=== PATIENT | female | born 1980 | race African-American/Black ===

== ENCOUNTER 2016-06-01 14:31 | Emergency (ER) | payer OTHER ==
[~2016-06-01] VITALS: Ht 170.2 cm; Wt 93.9 kg
--- NOTE | ~2016-06-01 | EKG ---
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
[~2016-06-01 14:31] MED LIST: APAP500 PO; DERMOPLAST SPRA56 ML; HYDROCODON-ACE1 EAC7 PO; IBUPROFEN 400400 M2 PO; IBUPROFEN 600600 M1 PO; IBUPROFEN 800800 M1 PO; IBUPROFEN 800800 MG PO; KEFLEX500 MG PO; LASIX 40 MG TAB40 M2 PO; LISINOPRIL40 MG PO; NOHOMEMEDICATIONS; NORCO 5-325 TA1 EACH PO; PENICILLIN V P500 MG PO; PENICILLIN VK500 M1 PO; POTASSIUM CHLO20 ME1 PO; PRENATAL; PRENATAL PO; TOBREX5 ML OPHTHALMIC; TUCKS MEDICATE1 EAC1; ZOFRAN ODT4 MG PO; ZPAK PO
[2016-06-01] MEDS ORDERED: ZANTAC 150MG T150 MG PO (15:24)
[2016-06-01 16:21] LABS: ABSOLUTE NEUTROPHILS 3.1 thou/uL (1.4-8.2); BASOPHILS 0.2 % (0.0-2.0); EOSINOPHILS 2.3 % (0.0-3.0); HEMATOCRIT 40.7 % (37.0-47.0); HEMOGLOBIN 13.6 gm/dL (12.0-15.0); LYMPHOCYTES 21.9 % (24.0-44.0); MCH 28.6 pg (26.0-34.0); MCHC 33.4 % (28.0-37.0); MCV 85.8 fL (80.0-100.0); MONOCYTES 9.1 % (1.0-8.0); PLATELET COUNT 198 thou/uL (150-400); POLYS 66.5 % (36.0-66.0); RBC 4.75 mil/uL (4.20-5.00); RDW 14.7 % (10.5-14.5); WBC 4.6 thou/uL (4.0-11.0)
[2016-06-01 16:22] LABS: MANUAL DIFF NO
[2016-06-01 16:24] LABS: CALCIUM 8.1 mg/dL (8.5-10.1); CREATININE 0.7 mg/dL (0.6-1.3); POTASSIUM 3.6 mmol/L (3.5-5.1)
== END 2016-06-01 16:45 | disposition home or self-care (01) ==
LOC: ER 14:31
PROVIDERS: Physician Assistant
DX: D17.9 Benign lipomatous neoplasm, unspecified (principal); R42 Dizziness and giddiness; Z87.891 Personal history of nicotine dependence

== ENCOUNTER 2016-12-08 11:27 | Emergency (ER) | payer OTHER ==
[~2016-12-08] VITALS: Ht 170.2 cm; Wt 92.1 kg
[~2016-12-08 11:27] MED LIST changes: +ZANTAC 150MG T150 MG PO
[2016-12-08] MEDS ORDERED: VALIUM5 MG PO (11:40)
[2016-12-08] MEDS ORDERED: NORCO 5-325 TA1 EACH PO (11:40)
== END 2016-12-08 12:31 | disposition home or self-care (01) ==
LOC: ER 11:27
DX: M43.6 Torticollis (principal); Z87.891 Personal history of nicotine dependence

== ENCOUNTER 2018-06-05 09:23 | Emergency (ER) | payer OTHER ==
[~2018-06-05] VITALS: Ht 170.2 cm; Wt 103.5 kg
[~2018-06-05 09:23] MED LIST changes: +VALIUM5 MG PO
[2018-06-05] MEDS ORDERED: HYDROCHLOROTH12.5 M1 PO (10:00)
[2018-06-05 10:05] LABS: URINE BILIRUBIN NEGATIVE (Negative); URINE CLARITY CLEAR; URINE COLOR YELLOW; URINE GLUCOSE-RANDOM* NEGATIVE (Negative); URINE KETONES NEGATIVE (Negative); URINE PROTEIN (DIPSTICK) NEGATIVE (Negative); URINE SPECIFIC GRAVITY >= 1.030 (1.005-1.035)
[2018-06-05 10:06] LABS: URINE BLOOD TRACE (Negative); URINE LEUKOCYTES 1+ (Negative); URINE NITRITE NEGATIVE (Negative); URINE UROBILINOGEN 0.2 E.U./dl (0.2-1.0)
[2018-06-05 10:14] LABS: SQUAMOUS >10 Many /LPF (0-3)
[2018-06-05 10:15] LABS: CASTS None Seen /LPF (None Seen); CRYSTALS None Seen /LPF (None Seen); URINE RBC 0-2 Rare /HPF (0-2); URINE WBC 6-15 Few /HPF (0-5)
[2018-06-05 10:41] LABS: ABSOLUTE NEUTROPHILS 5.8 thou/uL (1.4-8.2); BASOPHILS 0.8 % (0.0-2.0); EOSINOPHILS 2.9 % (0.0-3.0); HEMATOCRIT 41.3 % (37.0-47.0); HEMOGLOBIN 13.7 gm/dL (12.0-15.0); LYMPHOCYTES 20.9 % (24.0-44.0); MCH 27.7 pg (26.0-34.0); MCHC 33.1 g/dL (28.0-37.0); MCV 83.7 fL (80.0-100.0); MONOCYTES 6.9 % (1.0-8.0); PLATELET COUNT 256 thou/uL (150-400); POLYS 68.5 % (36.0-66.0); RBC 4.94 mil/uL (4.20-5.00); RDW 15.2 % (10.5-14.5); WBC 8.5 thou/uL (4.0-11.0)
[2018-06-05 10:53] LABS: ANION GAP 8 mmol/L (7-16); BUN 12 mg/dL (7-18); CALCIUM 8.7 mg/dL (8.5-10.1); CHLORIDE 104 mmol/L (98-107); CO2 26 mmol/L (21-32); GLUCOSE 104 mg/dL (74-106); POTASSIUM 3.8 mmol/L (3.5-5.1); SODIUM 138 mmol/L (136-145)
[2018-06-05 11:02] LABS: TROPONIN-I <0.06 ng/mL (<0.06)
[2018-06-05] MEDS ORDERED: KEFLEX500 M1 PO (11:14)
[2018-06-05 11:31] VITALS: BP 107/63
--- NOTE | 2018-06-05 11:31 | EKG ---
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 : 1980 Requested By: Latoya Gonzalez Order Number: [id number] MD: Krish Romero Measurements Intervals [place] Rate: 64 P: 86 [place]: 148 QRS: 66 QRSD: 73 T: 15 QT: 391 QTc: 404 Interpretive Statements Sinus rhythm Left atrial enlargement RSR' in V1 or V2, probably normal variant ST elev, probable normal early repol pattern Compared to ECG 06/01/2016 14:40:27 RSR' in V1 or V2 now present ST (T wave) deviation now present Electronically Signed On 06-05-2018 11:31:43 CREDIT RISK ANALYTICS MANAGER by Krish Romero [email or web address] <ELECTRONICALLY SIGNED> By: Krish Romero MD 06/05/18 1131 1007 1007 Krish Romero MD /EPI
== END 2018-06-05 11:32 | disposition home or self-care (01) ==
LOC: ER 09:23
PROVIDERS: Emergency Medicine
DX: I10 Essential (primary) hypertension (principal); R60.0 Localized edema; R35.0 Frequency of micturition; Z87.891 Personal history of nicotine dependence

== ENCOUNTER 2019-01-01 11:27 | Emergency (ER) | payer OTHER ==
[~2019-01-01] VITALS: Ht 170.2 cm; Wt 99.8 kg
[~2019-01-01 11:27] MED LIST changes: +HYDROCHLOROTH12.5 M1 PO; +KEFLEX500 M1 PO
[2019-01-01] MEDS ORDERED: IBUPROFEN 200200 M1 PO (11:39)
[2019-01-01 12:10] LABS: ABSOLUTE NEUTROPHILS 3.8 thou/uL (1.4-8.2); BASOPHILS 0.3 % (0.0-2.0); EOSINOPHILS 3.9 % (0.0-3.0); HEMATOCRIT 39.1 % (37.0-47.0); HEMOGLOBIN 13.3 gm/dL (12.0-15.0); LYMPHOCYTES 31.9 % (24.0-44.0); MCH 28.4 pg (26.0-34.0); MCV 83.5 fL (80.0-100.0); MONOCYTES 6.5 % (1.0-8.0); PLATELET COUNT 229 thou/uL (150-400); POLYS 57.4 % (36.0-66.0); RBC 4.69 mil/uL (4.20-5.00); WBC 6.5 thou/uL (4.0-11.0)
[2019-01-01 12:14] LABS: CALCIUM 8.6 mg/dL (8.5-10.1); CREATININE 0.9 mg/dL (0.6-1.0); POTASSIUM 3.6 mmol/L (3.5-5.1)
[2019-01-01 12:49] VITALS: BP 106/44
[2019-01-01] MEDS ORDERED: HYDROCHLOROTH12.5 M1 PO (12:54)
[2019-01-01] MEDS ORDERED: TORADOL 10 MG T10 MG PO (12:54)
--- NOTE | 2019-01-02 08:09 | EKG ---
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
== END 2019-01-01 13:58 | disposition home or self-care (01) ==
LOC: ER 11:27
PROVIDERS: Emergency Medicine
DX: S16.1XXA Strain of muscle, fascia and tendon at neck level, initial encounter (principal); I10 Essential (primary) hypertension; Z98.51 Tubal ligation status; Z87.891 Personal history of nicotine dependence; X58.XXXA Exposure to other specified factors, initial encounter; Y93.89 Activity, other specified; Y92.89 Other specified places as the place of occurrence of the external cause; Y99.8 Other external cause status

== ENCOUNTER 2019-02-05 11:48 | Emergency (ER) | payer OTHER ==
[~2019-02-05] VITALS: Ht 170.2 cm; Wt 99.8 kg
[~2019-02-05 11:48] MED LIST changes: +IBUPROFEN 200200 M1 PO; +TORADOL 10 MG T10 MG PO
[2019-02-05] MEDS ORDERED: NORCO 5-325 TA1 EAC1 PO (12:41)
[2019-02-05 13:28] VITALS: BP 121/59
== END 2019-02-05 13:20 | disposition home or self-care (01) ==
LOC: ER 11:48
DX: M72.2 Plantar fascial fibromatosis (principal); I10 Essential (primary) hypertension; Z87.891 Personal history of nicotine dependence

== ENCOUNTER 2019-05-01 08:18 | Emergency (ER) | payer OTHER ==
[~2019-05-01] VITALS: Ht 170.2 cm; Wt 99.8 kg
[~2019-05-01 08:18] MED LIST changes: +NORCO 5-325 TA1 EAC1 PO
[2019-05-01 08:36] LABS: URINE BILIRUBIN NEGATIVE (Negative); URINE BLOOD NEGATIVE (Negative); URINE CLARITY CLEAR; URINE COLOR YELLOW; URINE GLUCOSE-RANDOM* NEGATIVE (Negative); URINE KETONES NEGATIVE (Negative); URINE NITRITE-REFLEX NEGATIVE (Negative); URINE PROTEIN (DIPSTICK) NEGATIVE (Negative); URINE SPECIFIC GRAVITY 1.025 (1.005-1.035)
[2019-05-01 08:38] LABS: URINE LEUKOCYTES-REFLEX 1+ (Negative)
[2019-05-01 09:08] LABS: HYALINE CASTS 0-3 Few /LPF (None Seen); SQUAMOUS >10 Many /LPF (0-3)
[2019-05-01 09:09] LABS: MUCUS 0-3 Light strn/LPF (None Seen)
[2019-05-01 09:11] LABS: URINE WBC-REFLEX 0-5 Rare /HPF (0-5)
[2019-05-01 09:12] LABS: AMORPHOUS URATES Few /LPF (None Seen); URINE RBC 0-2 Rare /HPF (0-2)
[2019-05-01] MEDS ORDERED: ULTRAM 50MG TAB50 MG PO (09:28)
[2019-05-01] MEDS ORDERED: NAPROSYN500 MG PO (09:28)
[2019-05-01] MEDS ORDERED: NORFLEX100 MG PO (09:28)
[2019-05-01 09:58] VITALS: BP 118/71
== END 2019-05-01 09:59 | disposition home or self-care (01) ==
LOC: ER 08:18
PROVIDERS: Emergency Medicine
DX: S29.012A Strain of muscle and tendon of back wall of thorax, initial encounter (principal); M54.2 Cervicalgia; I10 Essential (primary) hypertension; Z98.51 Tubal ligation status; Z87.891 Personal history of nicotine dependence; X50.9XXA Other and unspecified overexertion or strenuous movements or postures, initial encounter; Y93.89 Activity, other specified; Y92.89 Other specified places as the place of occurrence of the external cause; Y99.8 Other external cause status

== ENCOUNTER → 2020-05-08 | Outpatient (CLI) | payer OTHER ==
[~2020-05-08] MED LIST changes: +NAPROSYN500 MG PO; +NORFLEX100 MG PO; +ULTRAM 50MG TAB50 MG PO
== END ==
LOC: LAB 01:20
PROVIDERS: ATTEND Specialist
DX: Z20.828 Contact with and (suspected) exposure to other viral communicable diseases (principal)

== ENCOUNTER → 2020-05-14 | Outpatient (CLI) | payer OTHER | LOC: LAB 04-30 09:37 | PROVIDERS: ATTEND Specialist | DX: Z20.828 Contact with and (suspected) exposure to other viral communicable diseases (principal) ==

== ENCOUNTER → 2020-05-22 | Outpatient (CLI) | payer OTHER | LOC: LAB 14:44 | PROVIDERS: ATTEND Specialist | DX: Z20.828 Contact with and (suspected) exposure to other viral communicable diseases (principal) ==